=== PATIENT | female | born 1950 | race Caucasian/White ===

== ENCOUNTER 2020-08-24 15:56 | Emergency (ER) | payer MEDICARE, SELFPAY ==
--- NOTE | ~2020-08-24 | XR_ITS ---
EXAMINATION: XR ribs LT 2V w CXR 2V EXAM DATE: 08/24/2020 16:36 INDICATION: Initial encounter following injury, with pain of the left ribs. TECHNIQUE: Frontal projection of the upper left ribs, frontal projection of the lower left ribs, obli que projection of the left ribs, frontal and lateral chest x-ray(s) for interpretation. There is no prior study for comparison. FINDINGS: Contour distortion to the left 8th rib, could be age-indeterminate fracture. No definite co rtical discontinuity identified. There is no soft tissue abnormality seen. Moderate chronic hyperinfl ation. Left midlung zone granuloma. Patient may have left atrial enlargement, but overall cardiac siz e within normal limits. There is severe lumbar dextroscoliosis. Lumbar fusion at L4-5. IMPRESSION: 1. Left 8th rib contour bump, possible age-indeterminate fracture. 2. Chronic hyperinflation. 3. Possible left atrial enlargement. Reviewed, dictated and finalized at location A.
[2020-08-24 16:14] VITALS: BP 148/75; PULSE 74; RESP 20; TEMP 36.4; O2SAT 100
--- NOTE | 2020-08-24 16:27 | ED.GENADULT ---
HPI - General Adult General Chief complaint: Fall Stated complaint: left side rib injury Time Seen by Provider: 08/24/20 16:27 Source: patient and RN notes reviewed Mode of arrival: ambulatory Limitations: no limitations History of Present Illness HPI narrative: 69-year-old female presents with complaints of left rib cage pain status post fall 1 day ago. Chasidy reports falling off toilet, pain increase with deep breathing. No treatment. Denies difficulty breathing or cough. Denies hitting head, syncopal, seizure activities, or loss consciousness. No bruising. No deformity. Exacerbating factors consist of taking a deep breath. No relieving factors. Denies fever or chills. No cardiac chest pain, wheezing, or shortness of breath. Denies nausea or vomiting. Tolerating intake well. Remains active. The patient reports she have not been diagnosed with COVID-19. The patient reports she is not waiting for the results of a COVID-19 lab test. The patient reports she do not have chills, weakness, or fatigue. The patient reports she do not have a new or worsening cough or shortness of breath. The patient reports she do not have any rhinorrhea, congestion, sore throat, loss of taste or smell, abdominal pain, and diarrhea. Denies recent traveling. Denies concerns for COVID-19 or exposures been home with limited outdoor exposure except for essential household needs, work, and return home. At this time, patient is not suspected of having COVID-19. Some parts of this dictation were generated by voice recognition software and may contain typographical and/or grammatical inaccuracies. Related Data Home Medications Medication Instructions Recorded Confirmed bupropion HCl 150 mg PO DAILY 08/24/20 08/24/20 bupropion HCl 300 mg PO DAILY 08/24/20 08/24/20 duloxetine 30 mg PO DAILY 08/24/20 08/24/20 estradiol 0.5 mg PO DAILY 08/24/20 08/24/20 hydrocodone-acetaminophen 5 - 325 tablet PO DAILY 08/24/20 08/24/20 ropinirole 1 mg PO DAILY 08/24/20 08/24/20 Allergies Allergy/AdvReac Type Severity Reaction Status Date / Time latex Allergy Unknown Other Verified 08/24/20 16:24 Sulfa (Sulfonamide Allergy Unknown Swelling Verified 08/24/20 16:24 Antibiotics) TELFA BANDAIDS AdvReac Redness of Uncoded 08/24/20 16:50 Skin Review of Systems Review of Systems: Narrative: CONSTITUTIONAL: Denies fever, chills, sweats. EYES: Denies visual changes, redness, discharge. ENT: Denies rhinorrhea, congestion, sore throat, otalgia. CARDIOVASCULAR: Denies chest pain, palpitations, edema. RESPIRATORY: Denies dyspnea, wheezing, cough. GASTROINTESTINAL: Denies abdominal pain, nausea, vomiting, diarrhea. GENITOURINARY: Denies dysuria, hematuria, abnormal discharge. SKIN: Denies rash or itching. MUSCULOSKELETAL: Denies acute back pain, joint pain, myalgia. Complains of acute left rib cage tenderness. NEUROLOGIC: Denies numbness or focal weakness. PSYCHIATRIC: Denies anxiety or depression. All systems reviewed & are unremarkable except as noted in HPI and below. [facility] Past Medical History Medical History (Updated 08/25/20 @ 00:00 by Yony Gonzales) Back pain with history of spinal surgery Hypertension Surgical History Surgical History (Updated 08/25/20 @ 15:01 by VALERIA Young) History of ear surgery Left History of elbow surgery excision of mass 08/25/2009 History of knee surgery Bilateral History of spinal surgery Family History Family History (Updated 08/24/20 @ 17:07 by VALERIA Young) Father , Related to pneumonia emphysema Smoker in home Mother Cerebrovascular accident Social History Social History (Updated 08/24/20 @ 17:08 by VALERIA Young) Smoking status: Never smoker Tobacco type: cigarettes Second hand tobacco smoke exposure: No Alcohol intake: current Substance use: never Living arrangements: alone Occupation/Education: occupation Gender i
== END 2020-08-24 17:24 | disposition home or self-care (01) ==
PROVIDERS: Emergency Provider Nurse Practitioner Family; PCP Internal Medicine
DX: S20.212A Contusion of left front wall of thorax, initial encounter (principal); W18.11XA Fall from or off toilet without subsequent striking against object, initial encounter; I10 Essential (primary) hypertension
CPT/HCPCS: 71046; 71100; 99213; G0463

== ENCOUNTER 2022-04-12 12:19 | Emergency (ER) | payer MEDICARE, SELFPAY ==
--- NOTE | ~2022-04-12 | XR_ITS ---
XR knee LT min 4V DATE: 04/12/2022 13:21 INDICATION: Fall on left knee. Lateral pain. TECHNIQUE: 4 views COMPARISON: None FINDINGS: Status post left total knee arthroplasty with patellar resurfacing. No fracture or dislocation, periosteal reaction or bone destruction. IMPRESSION: Status post left total knee arthroplasty No fracture or dislocation Reviewed, dictated and finalized at location A.
[2022-04-12 12:34] VITALS: BP 139/73; PULSE 77; RESP 16; TEMP 36.9; O2SAT 98
--- NOTE | 2022-04-12 12:35 | ED.LOWEXIN ---
HPI - Extremity Injury (Lower) General Chief Complaint: Extremity Injury, Lower Stated Complaint: knee and face injury Time Seen by Provider: 04/12/22 13:07 Source: patient and RN notes reviewed Mode of arrival: ambulatory Limitations: no limitations History of Present Illness HPI Narrative: 71-year-old female presents to the [facility] with complaints of left knee pain and bruising to the left side of her face that occurred 3 days ago while camping. Patient states that she missed a step and fell landing on her left side. Patient denies any loss of consciousness. Denies headache. Denies eye pain. Is concerned because she has had a knee replacement and wants to make sure the replacement is fine. Discussed with patient signs and symptoms of a concussion and treatment to follow up with primary care provider and/or ER if she has further concerns for the facial trauma which she states she does not and does not need to go the ER at this time. Onset (ago): day(s) (3) Related Data Home Medications Medication Instructions Recorded Confirmed bupropion HCl 300 mg 24 hr tablet, 300 mg PO DAILY 08/24/20 04/12/22 extended release estradiol 0.5 mg tablet 1 mg PO DAILY 08/24/20 04/12/22 hydrocodone 5 mg-acetaminophen 325 5 - 325 tablet PO BID-TID 08/24/20 04/12/22 mg tablet ropinirole 1 mg tablet 1 mg PO DAILY 08/24/20 04/12/22 gabapentin 300 mg tablet 300 mg PO TID 04/12/22 04/12/22 Allergies Allergy/AdvReac Type Severity Reaction Status Date / Time latex Allergy Unknown Other Verified 04/12/22 12:38 Sulfa (Sulfonamide Allergy Unknown Swelling Verified 04/12/22 12:38 Antibiotics) TELFA BANDAIDS AdvReac Redness of Uncoded 04/12/22 12:38 Skin Review of Systems Review of Systems: All systems reviewed & are unremarkable except as noted in HPI and below Constitutional: Constitutional: Reports no additional constitutional complaints, Denies chills and Denies fever(s) Eyes: Eyes: Reports no additional eye complaints ENT: Reports system reviewed and no additional complaints, except as documented Cardiovascular: Cardiovascular: Reports no additional cardiovascular complaints Respiratory: Respiratory: Reports no additional respiratory complaints Gastrointestinal: Gastrointestinal: Reports no additional gastrointestinal complaints Musculoskeletal: Musculoskeletal: Reports as per HPI, Reports arthralgias and Reports joint swelling Integumentary/Breasts: Skin/Breast: Reports as per HPI Neurologic: Reports system reviewed and no additional complaints, except as documented Psychiatric: Psychiatric: Reports no additional psychiatric complaints Allergic/Immunologic: Allergic/Immunologic: Reports no additional allergic/immunologic complaints [facility] Past Medical History Medical History Back pain with history of spinal surgery Hypertension Surgical History Surgical History History of ear surgery Left History of elbow surgery excision of mass 08/25/2009 History of knee surgery Bilateral History of spinal surgery Family History Family History Father , Related to pneumonia emphysema Smoker in home Mother Cerebrovascular accident Social History Social History Smoking status: Never smoker Tobacco type: cigarettes Second hand tobacco smoke exposure: No Alcohol intake: current Substance use: never Gender identity (if verbalized by the patient): Female Comments At the time of my signature, I reviewed and agree with the nursing past medical, surgical, social, and family history. There is no relevant family history pertinent to the patient complaint. Exam Const: General: healthy appearing, no acute distress, alert and well nourished Nutritional Appearance: wel
== END 2022-04-12 13:46 | disposition home or self-care (01) ==
PROVIDERS: Emergency Provider Nurse Practitioner; PCP Internal Medicine
DX: S80.02XA Contusion of left knee, initial encounter (principal); W19.XXXA Unspecified fall, initial encounter; I10 Essential (primary) hypertension
CPT/HCPCS: 73564; 99213; G0463

== ENCOUNTER 2023-04-14 11:27 | Emergency (ER) | payer MEDICARE, SELFPAY ==
--- NOTE | ~2023-04-14 | XR_ITS ---
Right Shoulder Technique: AP and scapular Y views were obtained. Clinical History: Pain Findings: No fracture or dislocation is seen. Right shoulder arthroplasty in place. No hardware compl ication seen. Soft tissues are unremarkable. Impression: No acute abnormality. Right shoulder arthroplasty. Reviewed, dictated and finalized at location . [employer] Impression: No acute abnormality. Right shoulder arthroplasty.
[2023-04-14 11:38] VITALS: BP 156/81; PULSE 89; RESP 20; TEMP 37.3; O2SAT 97
[2023-04-14 11:44] VITALS: BP 156/81; PULSE 89; RESP 20; TEMP 37.3; O2SAT 97
--- NOTE | 2023-04-14 12:53 | ED.UPPEXIN ---
HPI - Extremity Injury (Upper) General Chief Complaint: Extremity Injury, Upper Stated Complaint: injuries from fall Source: patient Mode of arrival: ambulatory Limitations: no limitations History of Present Illness HPI narrative: 72 y/o female presented for c/o right shoulder pain after fall at home 2 days ago. states when getting up in the night she tripped and fell landing the right shoulder on the coffee table and then twisted striking the left side of her face on her table again. Denies Loss of consciousness. Reports pain to the right shoulder worse with movement of the arm, reports limited ROM to the shoulder due to pain. Denies headache, vision changes, dizziness, nausea, vomiting. denies numbness, tingling, weakness or radiating pain of the upper extremity. she took hydrocodone for pain today, as prescribed for back pain. Related Data Home Medications Medication Instructions Recorded Confirmed bupropion HCl 300 mg 24 hr tablet, 300 mg PO DAILY 08/24/20 04/14/23 extended release hydrocodone 5 mg-acetaminophen 325 5 - 325 tablet PO BID-TID 08/24/20 04/14/23 mg tablet ropinirole 1 mg tablet 1 mg PO DAILY 08/24/20 04/14/23 Allergies Allergy/AdvReac Type Severity Reaction Status Date / Time latex Allergy Unknown Other Verified 04/14/23 11:42 Sulfa (Sulfonamide Allergy Unknown Swelling Verified 04/14/23 11:42 Antibiotics) TELFA BANDAIDS AdvReac Redness of Uncoded 04/14/23 11:42 Skin Review of Systems Review of Systems: CONSTITUTIONAL: Denies body aches, fever, chills EYES: Reports bruising; Denies visual changes ENT: Denies rhinorrhea, epistaxis CARDIOVASCULAR: Denies chest pain, palpitations, or edema. RESPIRATORY: Denies cough or dyspnea. GASTROINTESTINAL: Denies abdominal pain, nausea, vomiting, or diarrhea. SKIN: Denies rash, itching, or wounds. MUSCULOSKELETAL: reports right shoulder pain Denies back pain, or myalgia. NEUROLOGIC: Denies headache, numbness, tingling, or weakness. All systems reviewed & are unremarkable except as noted in HPI and below PMFSH Past Medical History Medical History Back pain with history of spinal surgery Hypertension Surgical History Surgical History History of ear surgery Left History of elbow surgery excision of mass 08/25/2009 History of knee surgery Bilateral History of spinal surgery Family History Family History Father , Related to pneumonia emphysema Smoker in home Mother Cerebrovascular accident Social History Social History Smoking status: Never smoker Tobacco type: cigarettes Second hand tobacco smoke exposure: No Alcohol intake: current Substance use: never Living arrangements: alone Occupation/Education: occupation Gender identity (if verbalized by the patient): Female Comments At time of signature, I have reviewed and agree with nursing past medical, surgical, social and family history unless otherwise noted. Please see nursing chart for further information. There is no relevant family history pertinent to the presenting complaint Exam Narrative: GENERAL: Well-appearing, well-nourished, and in no acute distress. HEAD: Left periorbital ecchymosis, mild tenderness over eyebrow; left mid mandible with mild bruising and tenderness EYES: PERRLA, EOMI. conjunctivae clear, minimal swelling to right periorbital area; no subconjunctival hemorrhage NECK: Supple. no VPT, full ROM. CHEST: Speaks in full sentences. No respiratory distress. HEART: Regular rate and rhythm. Normal and equal peripheral pulses. EXTREMITIES: RUE has normal strength and sensation, limited range of motion at shoulder; endorses pain with movement. Posterior shoulder tenderness with palpation. able to tole
== END 2023-04-14 13:10 | disposition home or self-care (01) ==
PROVIDERS: Emergency Provider Nurse Practitioner Family; PCP Internal Medicine
DX: M25.512 Pain in left shoulder (principal); S05.12XA Contusion of eyeball and orbital tissues, left eye, initial encounter; W01.0XXA Fall on same level from slipping, tripping and stumbling without subsequent striking against object, initial encounter; I10 Essential (primary) hypertension
CPT/HCPCS: 73030; 99213; G0463

== ENCOUNTER 2023-06-09 15:44 | Emergency (ER) | payer MEDICARE, SELFPAY ==
[2023-06-09 15:58] VITALS: BP 124/68; PULSE 95; RESP 20; TEMP 37.4; O2SAT 96
--- NOTE | 2023-06-09 17:01 | ED.GENADULT ---
HPI - General Adult General Chief complaint: Nausea/Vomiting/Diarrhea Stated complaint: diarrhea x 4 days Time Seen by Provider: 06/09/23 17:01 Source: patient, RN notes reviewed and old records reviewed Mode of arrival: ambulatory Limitations: no limitations History of Present Illness HPI narrative: 72 year old female presents to [facility] with complaints of 2 week duration of diarrhea off and on with the past 4 days increase in diarrhea with 10 times today of loose stools with stomach cramps.Patient reports that she called her PCP on and was told to go to urgent care that no appointment available that day or next. Patient reports no recent antibiotic use, no fevers or any noted blood in stools. Patient denies any lower abdominal pain or any associated back pain. Patient reports that she had colonoscopy 3 months ago and everything was fine with test. Patient states that she has taken Pepto Bismol and also Immodium for the diarrhea. MD complaint: diarrhea Onset (ago): week(s) (2 weeks intermittently with increased symptoms past 4 days) Quality: other (cramping) Treatments prior to arrival: other (immodium and Pepto Bismol) Related Data Home Medications Medication Instructions Recorded Confirmed hydrocodone 5 mg-acetaminophen 325 5 - 325 tablet PO BID-TID 08/24/20 06/09/23 mg tablet ropinirole 1 mg tablet 1 mg PO DAILY 08/24/20 06/09/23 atorvastatin 20 mg tablet 20 mg PO DAILY 06/09/23 06/09/23 losartan 25 mg tablet 25 mg PO DAILY 06/09/23 06/09/23 Allergies Allergy/AdvReac Type Severity Reaction Status Date / Time latex Allergy Unknown Other Verified 06/09/23 16:44 Sulfa (Sulfonamide Allergy Unknown Swelling Verified 06/09/23 16:44 Antibiotics) TELFA BANDAIDS AdvReac Redness of Uncoded 04/14/23 11:42 Skin Review of Systems Review of Systems: CONSTITUTIONAL: Denies fever, chills, or sweats. ENT: Denies rhinorrhea, congestion, sore throat, or otalgia. CARDIOVASCULAR: Denies chest pain, palpitations, or edema. RESPIRATORY: Denies cough or dyspnea. GASTROINTESTINAL: Reports abdominal cramping, positive for nausea,no vomiting, positive for diarrhea. GENITOURINARY: Denies dysuria or hematuria. SKIN: Denies rash or itching. MUSCULOSKELETAL: Chronic back pain, joint pain, or myalgia. NEUROLOGIC: Denies headache, numbness, or weakness. All systems reviewed & are unremarkable except as noted in HPI and below PMFSH Past Medical History Medical History (Updated 06/11/23 @ 17:05 by Sarahy Corona NP) Back pain with history of spinal surgery Hyperlipidemia Hypertension Restless leg syndrome Surgical History Surgical History H/O bilateral oophorectomy History of ear surgery Left History of elbow surgery excision of mass 08/25/2009 History of knee surgery Bilateral History of right shoulder replacement History of spinal surgery Family History Family History Father , Related to pneumonia emphysema Smoker in home Mother Cerebrovascular accident Social History Social History Smoking status: Never smoker Tobacco type: cigarettes Second hand tobacco smoke exposure: No Alcohol intake: current Substance use: never Living arrangements: alone Occupation/Education: occupation Gender identity (if verbalized by the patient): Female Comments At time of signature, agree with nursing past medical, surgical, social and family history. There is no relevant family history pertinent to the presenting complaint Exam Narrative: GENERAL: Well-appearing, well-nourished, and in no acute distress. HEAD: Normocephalic, atraumatic. EYES: PERRLA, conjunctivae clear, and EOMI. ENT: Nares clear. Mucous membranes moist. Oropharynx without edema, erythema, or lesions. Tonsils not enlarged and without
== END 2023-06-09 17:30 | disposition home or self-care (01) ==
PROVIDERS: Emergency Provider Registered Nurse; PCP Internal Medicine
DX: K52.9 Noninfective gastroenteritis and colitis, unspecified (principal); E78.5 Hyperlipidemia, unspecified; I10 Essential (primary) hypertension; G25.81 Restless legs syndrome; Z96.612 Presence of left artificial shoulder joint; Z96.611 Presence of right artificial shoulder joint
CPT/HCPCS: 99213; G0463

== ENCOUNTER 2024-01-02 15:28 | Emergency (ER) | payer MEDICARE, SELFPAY ==
[2024-01-02 15:32] VITALS: BP 141/76; PULSE 96; RESP 18; TEMP 36.6; O2SAT 97
--- NOTE | 2024-01-02 15:43 | ED.WOUNDLAC ---
HPI - Wound/Laceration General Chief Complaint: Wound/Laceration Stated Complaint: left hand lac / needs tetnus Time Seen by Provider: 01/02/24 15:44 Source: patient, RN notes reviewed and old records reviewed Mode of arrival: ambulatory Limitations: no limitations History of Present Illness HPI narrative: 73-year-old female presents to the [facility] with a 1.5 cm laceration to the palmar aspect left hand just below 2nd finger. Also requesting a tetanus shot unknown last Tdap. Bleeding is controlled. States that she caught it on a piece of glass this morning Related Data Home Medications Medication Instructions Recorded Confirmed hydrocodone 5 mg-acetaminophen 325 5 - 325 tablet PO BID-TID 08/24/20 06/09/23 mg tablet ropinirole 1 mg tablet 1 mg PO DAILY 08/24/20 06/09/23 atorvastatin 20 mg tablet 20 mg PO DAILY 06/09/23 06/09/23 losartan 25 mg tablet 25 mg PO DAILY 06/09/23 06/09/23 albuterol sulfate 90 mcg/actuation inhalation 01/02/24 aerosol inhaler baclofen 10 mg tablet mg 01/02/24 bupropion HCl 150 mg 24 hr tablet, mg PO 01/02/24 extended release Allergies Allergy/AdvReac Type Severity Reaction Status Date / Time latex Allergy Unknown Other Verified 06/09/23 16:44 Sulfa (Sulfonamide Allergy Unknown Swelling Verified 06/09/23 16:44 Antibiotics) TELFA BANDAIDS AdvReac Redness of Uncoded 04/14/23 11:42 Skin Review of Systems Review of Systems: All systems reviewed & are unremarkable except as noted in HPI and below Constitutional: Constitutional: Reports no additional constitutional complaints Eyes: Eyes: Reports no additional eye complaints ENT: Reports system reviewed and no additional complaints, except as documented Cardiovascular: Cardiovascular: Reports no additional cardiovascular complaints, Denies chest pain and Denies dyspnea Respiratory: Respiratory: Reports no additional respiratory complaints, Denies chest congestion, Denies cough and Denies dyspnea Gastrointestinal: Gastrointestinal: Reports no additional gastrointestinal complaints, Denies abdominal pain, Denies nausea and Denies vomiting Musculoskeletal: Musculoskeletal: Reports no additional musculoskeletal complaints Integumentary/Breasts: Skin/Breast: Reports as per HPI and Reports wounds Neurologic: Reports system reviewed and no additional complaints, except as documented Psychiatric: Psychiatric: Reports no additional psychiatric complaints Allergic/Immunologic: Allergic/Immunologic: Reports no additional allergic/immunologic complaints PMFSH Past Medical History Medical History Back pain with history of spinal surgery Hyperlipidemia Hypertension Restless leg syndrome Surgical History Surgical History H/O bilateral oophorectomy History of ear surgery Left History of elbow surgery excision of mass 08/25/2009 History of knee surgery Bilateral History of right shoulder replacement History of spinal surgery Family History Family History Father , Related to pneumonia emphysema Smoker in home Mother Cerebrovascular accident Social History Social History Smoking status: Never smoker Tobacco type: cigarettes Second hand tobacco smoke exposure: No Alcohol intake: current Substance use: never Living arrangements: alone Occupation/Education: occupation Gender identity (if verbalized by the patient): Female Comments At the time of my signature, I reviewed and agree with the nursing past medical, surgical, social, and family history. There is no relevant family history pertinent to the patient complaint. Exam Const: General: cooperative, healthy appearing, comfortable, no acute distress, well developed, alert and well nourished Nutritional A
[2024-01-02] MEDS: TETANUS,DIPHTHERIA,AC PERTUSSIS ADULT (0.5 ML) BOOSTRIX IM (16:23)
== END 2024-01-02 16:32 | disposition home or self-care (01) ==
PROVIDERS: Emergency Provider Nurse Practitioner; PCP Internal Medicine
DX: S61.412A Laceration without foreign body of left hand, initial encounter (principal); W25.XXXA Contact with sharp glass, initial encounter; Z23 Encounter for immunization; E78.5 Hyperlipidemia, unspecified; I10 Essential (primary) hypertension; G25.81 Restless legs syndrome; Z96.611 Presence of right artificial shoulder joint; Z90.722 Acquired absence of ovaries, bilateral
CPT/HCPCS: 12001; 90471; 90715; 99212; G0463

== ENCOUNTER 2024-10-18 19:02 | Emergency (ER) | payer MEDICARE, SELFPAY ==
--- OUTSIDE RECORDS SUMMARY | 2024-10-18 19:05 | XMS_ITS | CONTINUITY OF CARE DOCUMENT ---
Author Name opal joseph Address Unknown Organization [facility] Office Address [address] [place] [address] Phone [phone] Care Team Providers Care Local Tanker Truck Driver Name Role Phone Davion DARLING, Dhiraj Unavailable [phone] FLORENCIO DARLING, PILLO Unavailable [phone] FLORENCIO DARLING, PILLO Unavailable [phone] PROBLEMS Condition Status Date Provider Notes Cardiovascular screening active Sheron lee INSURANCE PROVIDERS Payer name Policy type / Coverage type [place] red libertarian ID [employer] MEDICARE ADVANTAGE ST 0 003 (HMO POS) Medicare [id number] TREATMENT PLAN Date Name CT, Coronary Calcium Score
--- OUTSIDE RECORDS SUMMARY | 2024-10-18 19:05 | XMS_ITS | Encounter Summary ---
Author Organization [facility] Address [address] [place] [address] Phone Care Team Providers Care Pre Billing Clinician Name Role Phone Radha Peck PT Unavailable Unavailable Ashley Glasgow PTA Unavailable Unavailable Rogerio Ash MD Primary Care Provider + Dominic Booker DPM Unavailable [phone] Delfina Monroy Unavailable [phone] Nicole Muñiz DPM Unavailable [phone] Encounter Details Date Type Department Care Team (Late st Contact Info) Description 05/16/2021 Telephone [facility] Surgery [address] [facility] [address] [place] [address] Kayla Trimble Social History Tobacco Use Types Packs/Day Years Used Date Smoking Tobacco: Never Smokeless Tobacco: Never Alcohol Use Standard Drinks/Week Comments Yes 0 (1 standard drink = 0.6 oz pur e alcohol) rare AUDIT-C Answer Date Recorded Q1: How often do you have a drink containing alc ohol? 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 Gender Identity Female 11/20/2021 7:13 AM CDT Sexual Orientation Straight 11/11/2018 2: 28 AM CDT documented as of this encounter Plan of Treatment Not on file documented as of this encounter Visit Diagnoses Not on filedocumented in this encounter Care Teams Pre Billing Clinician Relationship Specialty Start Date End Date Rogerio Ash MD [address] [place] [address] PCP - General 03/28/18 Radha Peck, PT Physical Therapist Physical Therapy 01/23/18 Ashley Glasgow [employer] Moving Picture Producer Physical Therapy 01/26/18 Dominic Booker, TITA [address] [place] [address] Consulting Physician Orthopedic Surgery 03/31/20 Delfina Monroy PA [address] [place] [id number] Physician County Agricultural Agent Orthopedic Surgery 11/09/21 Nicole Muñiz DPM [address] [place] [id number] Consulting Physician Foot and Ankle Surg 03/25/22 documented as of this encounter
--- OUTSIDE RECORDS SUMMARY | 2024-10-18 19:05 | XMS_ITS | Clinical Summary ---
Author Organization [facility] Address [address] [place] [address] Care Team Providers Care Gutter Hanger Name Role Phone CiscoRadha PT Unavailable Unavailable Ashley Glasgow PTA Unavailable Unavailable Rogerio Ash MD Primary Care Provider + Dominic Booker DPM Unavailable [phone] Delfina Monroy Unavailable [phone] Nicole Muñiz DPM Unavailable [phone] Allergies Active Allergy Reactions Criticality Noted Date Comments Latex Rash High Meperidine Rash Medium Sulfa (Sulfonamide Antibiotics) Nausea & Vomiting,Nausea only,Anaphylaxis High Reaction: Nausea, Vomiting. Diarrhea, Blist, Medications buPROPion XL (WELLBUTRIN XL) 300 mg 24 hr tablet Take 1 tablet (300 mg total) by mouth every morning Takes 450mg per day 0 Active rOPINIRole (REQUIP) 1 mg tablet Take 1 tablet (1 mg total) by mouth 3 (three) times a day Active estradioL (ESTRACE) 1 mg tablet Take 1 tablet (1 mg total) by mouth daily 2 Active baclofen (LIORESAL) 10 mg tablet Take 1 tablet (10 mg total) by mouth nightly at bedtime. 2 Active HYDROcodone-rayray taminophen (NORCO) 5-325 mg per tabletIndicatio ns:Pain Take 1-2 tablets by mouth every 4 (four) hours as needed for pain Take 1-2 tablets every 4-6 hours as needed for pain 20 tablet 3 Active ALPRAZolam (XANAX) 0.5 mg tablet Take 1 tablet (0.5 mg total) by mouth daily 3 Active albuterol HFA (PROVENTIL HFA,VENTOLIN HFA,PROAIR HFA) 90 mcg/actuation inhaler 3 Active fluticasone propionate (FLONASE) 50 mcg/actuation nasal spray Administer 1 spray into each nostril daily Active loratadine 10 mg capsule Take by mouth Activ e losartan (COZAAR) 50 mg tablet 4 Active atorvastatin (LIPITOR) 40 mg tablet 4 Active clobetasoL (TEMOVATE) 0.05 % external solution 4 Active ketoconazole (NIZORAL) 2 % shampoo 4 Active triamterene-hyd roCHLOROthiazid e 37.5-25 mg per capsule 4 Active ferrous fumarate 325 mg (106 mg iron) tablet Take 1 tablet (325 mg total) by mouth daily with breakfast Active magnesium oxide (MAG-OX) 400 mg (241.3 mg elemental magnesium) tabletIndicatio ns:hypomagnesem ia Take 1 tablet (400 mg total) by mouth daily Active zinc gluconate 50 mg tablet Take 1 tablet (50 mg total) by mouth daily Active cholecalciferol (VITAMIN D-3) 2000 unit tablet Active Active Problems Problem Noted Date Diagnosed Date Snoring 09/09/2024 Infectious gastroenteritis and colitis 4 Acquired hammer toe of right foot 06/03/2023 Hammer toe of left foot 06/03/2023 Primary osteoarthritis of fi rst carpometacarpal joint of left hand 10/31/2022 De Quervain's tenosynovitis 10/31/2022 Lipoma of right shoulder 03/20/2022 Overview (03/20/2022): Added automatically from request for surgery [id number] 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 Overview (03/20/2022): Added automatically from request for surgery [id number] Rotator cuff arthropathy, right 10/18/2021 Overview (10/18/2021): Added automatically from request for surgery [id number] Biceps tendonitis, right 10/18/2021 Overview (10/18/2021): Added automatically from request for surgery [id number] COVID-19 02/22/2021 Iron deficiency anemia 07/21/2020 Overview (07/21/2020): Added automatically from request for surgery [id number] Absolute anemia 03/28/2020 Overview (03/28/2020): Added automatically from request for surgery [id number] Nontoxic single thyroid nodule 06/15/2019 Assessment & Plan (06/15/2019 10:44 AM SKEIN DYER): Fine needle aspiration to right Thyroid Lobe nodule 2 cm - call with results Zpak Good hydration Monitor blood pressure Cough 06/15/2019 Assessment & Plan (06/15/2019 10:45 AM SKEIN DYER): Zpak, call if no improvement Headache 05/17/2019 Dizzy 05/17/2019 Fever 05/17/2019 Hearing loss 03/22/2019 Assessment & Plan (03/22/2019 2:34 PM CDT): Continue hearing aids, ear drum was intact today Spinal stenosis of lumbar region 01/09/2016 Overview (09/11/2016): Lumbar stenosis Assessment & Plan (03/10/2017 11:54 AM CDT): Reviewed core strengthening. Reviewed ROM exercises. Continue gabapentin and hydrocodone as needed. Assessment & Plan (11/19/2016 7:51 AM CDT): Continue gabapentin and hydrocodone as needed. Reviewed core strengthening. Reviewed ROM exercises. Neurogenic claudication due to lumbar spinal madonna nosis 01/09/2016 Overview (09/12/2016): Neurogenic claudication Assessment & Plan (03/10/2017 11:38 AM CDT): Reviewed core strengthening. Reviewed ROM exercises. Continue gabapentin and hydrocodone as needed. Acquired scoliosis 12/22/2015 Overview (09/12/2016): Acquired scoliosis Obesity with body mass index 30 or greater 11/14 Fecal incontinence 04/11/2014 Assessment & Plan (12/22/2023 4:38 PM CDT): Chronic issue. Mainly seeping of mucus and the liquid stool. Discussed with patient to start anal sphincter strengthening exercises. Start fiber supplements daily. Schedule colonoscopy with no sedation to properly examined the rectal in the anal sphincter areas. Follow up after Migraine 12/21/2013 Overview (09/12/2016): MIGRNE UNSP WO NTRC MGRN Atopic rhinitis 10/23/2013 Overview (09/11/2016): ALLERGIC RHINITIS NOS Assessment & Plan (03/22/2019 2:35 PM CDT): Flonase 2 sprays into each nostril while looking down over the sink, do not sniff in or blow nose after use daily Zyrtec (Cetirizine) 10 mg daily Hypertension 10/23/2013 Overview (09/12/2016): HYPERTENSION NOS Assessment & Plan (03/10/2017 11:37 AM CDT): Hypertension is controlled. Continue current regimen. Removed low sodium diet. Assessment & Plan (11/19/2016 7:50 AM CDT): Hypertension is controlled. Continue current regimen. Removed low sodium diet. Asthma 10/23/2013 Overview (09/12/2016): ASTHMA NOS Assessment & Plan (11/19/2016 12:49 PM CDT): Continue bronchodilators. Start Advair. Hyperlipidemia 10/23/2013 Overview (09/13/2016): HYPERLIPIDEMIA NEC/NOS Assessment & Plan (03/10/2017 11:38 AM CDT): Reviewed proper diet. Continue statin therapy. Assessment & Plan (11/19/2016 7:51 AM CDT): Reviewed diet and exercise goals. Sciatica 03/23/2004 Spinal stenosis in cervical region 03/23/2004 Encounters Date Type Department Care Team Description 09/07/2024 10:00 AM CDT - 09/07/2024 11:59 PM CDT Hospital Encounter [facility] [address] [place] [id number] Snoring Discharge Disposition: Discharge to home or self care from Last 3 Months Immunizations Immunization Administration Dates Next Due Influenza, Quadrivalent, Spl it, Preservative Free, Intramuscular 04/27/2015 Influenza, Split 04/22/2011 Influenza, Trivalent, High D ose, Split, Preservative Free, Intramuscular 03/10/2017,03/04/2016 Influenza, Trivalent, Split, Preservative Free, Intradermal 03/14/2014 Pneumococcal Conjugate PCV 13 03/04/2016 Tdap 03/28/2018 Surgical History Surgery Date Site/Laterality Comments TOTAL ABDOMINAL HYSTERECTOMY W/ BILATERAL SALPINGOOPHORECTOMY Hysterectomy, total abdominal, BSO BACK SURGERY Back surgery rods in baclk in the lower lumbar region CHOLECYSTECTOMY Cholecystectomy KNEE ARTHROPLASTY Bilateral Knee replacement TOE SURGERY 04/15/2018 Left Greater toe hammertoe repair, Right Fifth toe scraped bone and stitches EAR SURGERY 06/09/2008 - 06/08/2009 Left Fat patch done to cover hole in left ear drum. Didn't take. JOINT REPLACEMENT bilat TKA SPINE SURGERY L5-L6 COLONOSCOPY 10 years ago CORRECTION HAMMER TOE 03/09/2020 - 04/08/2020 Left CORRECTION HAMMER TOE 03/06/2022 Left SHOULDER SURGERY Right total shoulder surgery Medical History Medical History Date Comments Hx Other Medical RLS Hx Other Medical adjustment diso rder Hx Other Medical perforated L TM Hx Other Medical hiatal hernia Hyperlipidemia Hypertension Asthma Claustrophobia Neuropathy GERD (gastroesophageal reflux disease) Chronic diarrhea Anxiety Shortness of breath after having covid Depression Family History Medical History Relation Name Comments Diabetes type II Other 4 Diabetes me llitus type 2; Hypertension Other 5 Hypertension; Lymphoma Other 6 Lymphoma; Heart disease Other 7 Family history of heart problems; Arthritis Other 8 Family history of arthritis; Diabetes Other 9 Family history of Diabetes mellitus; Relation Name Status Comments Other 1 Alive Other 2 Alive Other 3 Alive Other 4 Other 5 Other 6 Other 7 Other 8 Other 9 Social History Tobacco Use Types Packs/Day Years Used Date Smoking Tobacco: Never Passive Smoke Exposure: Never Smokeless Tobacco: Never Tobacco Cessation:Counseling Given: Not Answered Alcohol Use Standard Drinks/Week Comments Yes 0 (1 standard drink = 0.6 oz pur e alcohol) rare AUDIT-C Answer Date Recorded Q1: How often do you have a drink containing alcohol? Never 12/31/2023 Q2: How many drinks containi ng alcohol do you have on a typical day when you are drinking? Patient does not drink Q3: How often do you have si x or more drinks on one occasion? Never 12/31/2023 PHQ-2 Answer Date Recorded PHQ-2 Total Score (If total score is 3 or more points, staff should administer the PHQ-9) 0 11/08/2021 Personal Safety Answer Date Recorded Have you ever been in or are you currently in a harmful physical or emotional relationship or is someone making you feel afraid or unsafe? Denies 01/01/2024 Comments No Sex and Gender Information Value Date Recorded Sex Assigned at Not on file Legal Sex Female 8:19 AM SKEIN DYER Gender Identity Female 11/20/2021 7:13 AM CDT Sexual Orientation Straight 11/11/2018 2: 28 AM CDT Obstetrics History Para Term AB IAB SAB Ectopic Multiple Livin g Live Births 2 2 2 Date Outcome GA Total Labor Labor/2nd/3rd Weight Sex Type Anes PTL Ema A1 A5 Name Clin Term Term Last Filed Vital Signs Vital Sign Reading Time Taken Comments Blood Pressure 152/80 01/01/2024 8:35 AM CDT Pulse 68 01/01/2024 8:35 AM CDT Temperature 36.6 C (97.8 F) 01/01/2024 8:35 AM CDT Respiratory Rate 16 01/01/2024 8:35 AM CDT Oxygen Saturation 98% 01/01/2024 8:35 AM CDT Inhaled Oxygen Concentration - - Weight 84.8 kg (187 lb) 01/01/2024 7:24 AM CDT Height 165.1 cm (5' 5 ) 01/01/2024 7:24 AM CDT Body Mass Index 31.12 01/01/2024 7:24 AM CDT Plan of Treatment Health Maintenance Due Date Last Done Comments Hepatitis C Screening 1950 Osteoporosis Screening-Bone Density Scan 1950 Hepatitis B Screening 1968 Lung Cancer Screening 2000 Zoster Vaccine (1 of 2) 2000 Well Visit 65+ 09/26/2015 Pneumococcal vaccine 65+ (2 of 2 - PPSV23) 07/16/2018 05/21/2018, 03/04/2016 Depression Screening 10/18/2022 10/18/2021, 03/10/2017, 11/19/2016 Breast Cancer Screening-Mammogram 01/18/2024 01/17/2023, 08/25/2014, 08/24/2014 Fall Risk Assessment 12/31/2024 01/01/2024 Influenza Vaccine (Season Ended) 2025 05/02/2023, 03/28/2023, 04/13/2021, Additional history exists DTaP/Tdap/Td Vaccine (2 - Td or Tdap) 03/28/2028 03/28/2018 Colon Cancer Screening-Colonoscopy 08/24/2030 08/24/2020 Colon Cancer Screening-CT Colonography Discontinued 01/01/2024, 08/24/2020 Colon Cancer Screening-DNA Stool Discontinued 01/01/20, 08/24/2020 Colon Cancer Screening-FIT Discontinued 01/01/2024, Colon Cancer Screening-Sigmoidoscopy Discontinued 01/01/2024, 08/24/2020 Medical Devices Implanted Type Area Baseball Inspector Device Identifier Shelf Expiration Date Model / Serial / Lot Cement Bone Smartset Gentamicin 40 Gm High Viscosity - [id number] Implanted:Qty: 1 on 07/01/2017 at [facility] [employer] 10/06/2018 [id number] / / [id number] Cement Bone Smartset Gentamicin 40 Gm High Viscosity - [id number] Implanted:Qty: 1 on 07/01/2017 at [facility] [employer] 11/06/2018 [id number] / / [id number] Baseplate Tibial Attune 5 Knee Cement Revision Fix Bearing Sterile Knee System - [id number] Implanted:Qty: 1 on 07/01/2017 at [facility] [employer] 11/06/2026 [id number] / / [id number] Stem Femoral Attune L50 Mm Od14 Mm Knee Cemented Revision Sterile - [id number] Implanted:Qty: 1 on 07/01/2017 by Dennis Espino MD at [facility] [employer] 11/06/2026 [id number] / / [id number] Insert Tibial Attune Aox 6 H8 Mm Knee Posterior Stabilize Fix Bearing Sterile - [id number] Implanted:Qty: 1 on 07/01/2017 by Dennis Espino MD at [facility] [employer] 04/08/2022 [id number] / / [id number] Dome Patellar Attune Aox H35 Mm Knee Cemented Medialize Sterile - [id number] Implanted:Qty: 1 on 07/01/2017 by Dennis Espino MD at [facility] [employer] 02/06/2022 [id number] / / [id number] Component Femoral Attune 6 Knee Right Cemented Posterior Stabilize Sterile - [id number] Implanted:Qty: 1 on 07/01/2017 by Dennis Espino MD at [facility] [employer] 03/08/2027 [id number] / / [id number] Inkblazers Tff-2015a Tenfuse 15x2mm Allograft Angle Graft Bone Pip Sterile - Sn/A - [id number] Implanted:Qty: 1 on 03/31/2020 at [facility] Left: Foot [employer] [id number] 06/16/2021 TFF-2015A / N/A / [id number] [employer]ers Tff-2718 Tenfuse 18x2.7mm Allograft Graft Bone Pip Sterile - [id number] Implanted:Qty: 1 on 03/31/2020 at [facility] Left: Foot [employer] 12/14/2021 TFF-21506 / / [id number] Ink[employer]ers Tff-2015a Tenfuse 15x2mm Allograft Angle Graft Bone Pip Sterile - Sna - [id number] Implanted:Qty: 1 on 03/31/2020 at [facility] Left: Nick [employer] C1713 06/16/2021 TFF-2015A / NA / [id number] Exactech Reverse Torque Define Shoulder Kit Screw 320-20-00 - [id number] - [id number] Implanted:Qty: 1 on 11/08/2021 by Dennis Espino MD at [facility] Right: Shoulder [employer] 10/14/2026 320-20-00 / [id number] / N/A [employer]ech 315-08-70kiajon xe Small Reverse Superior Posterior Augment Shoulder Right - [id number] - [id number] Implanted:Qty: 1 on 11/08/2021 by Dennis Espino MD at [facility] Right: Shoulder [employer] 09/04/2031 320-35-08 / [id number] / N/A [employer] 320-31-36 Component 36mm Glenoid Glenosphere Reverse Shoulder - [id number] - [id number] Implanted:Qty: 1 on 11/08/2021 by Dennis Espino MD at [facility] Right: Shoulder [employer] 03/29/2031 320-31-36 / [id number] / N/A [employer]ech Equinoxe 4.5mm 34mm Kit Compression Lock Cap Reverse Shoulder 320-20-34 - [id number] - [id number] Implanted:Qty: 1 on 11/08/2021 by Dennis Espino MD at [facility] Right: Shoulder [employer] 08/28/2026 320-20-34 / [id number] / N/A [employer] Equinoxe 4.5mm 34mm Kit Compression Lock Cap Reverse Shoulder 320-20-34 - [id number] - [id number] Implanted:Qty: 1 on 11/08/2021 by Dennis Espino MD at [facility] Right: Shoulder [employer] 02/05/2026 320-20-34 / [id number] / N/A [employer]ech Equinoxe Reverse Shoulder +0mm Tray Humeral Adapter 320-10-00 - [id number] - [id number] Implanted:Qty: 1 on 11/08/2021 by Dennis Espino MD at [facility] Right: Shoulder [employer] 10/16/2031 320-10-00 / [id number] / N/A [employer]ech 300-30-10 Equinoxe Od10 Mm L70 Mm Preserve Short Stem Humeral Sterile - [id number] - [id number] Implanted:Qty: 1 on 11/08/2021 by Dennis Espino MD at [facility] Right: Shoulder [employer] 10/17/2030 300-30-10 / [id number] / N/A [employer]actech Equinoxe 36mm Shoulder 0mm Offset Liner Humeral Sterile 320-36-00 - [id number] - [id number] Implanted:Qty: 1 on 11/08/2021 by Dennis Espino MD at [facility] Right: Shoulder [employer] 06/25/2026 320-36-00 / [id number] / N/A [employer]ech Equinoxe Lock Reverse Shoulder Glenosphere Screw Bone 320-15-05 - Sn/S - [id number] Implanted:Qty: 1 on 11/08/2021 by Dennis Espino MD at [facility] Right: Shoulder [employer] [id number] 09/17/2026 320-15-05 / N/S / [id number] Exactech Equinoxe Lock Reverse Shoulder Glenosphere Screw Bone 320-15-05 - Sn/A - [id number] Implanted:Qty: 1 on 11/08/2021 by Dennis Espino MD at [facility] [employer] [id number] 09/10/2026 320-15-05 / N/A / [id number] [employer] Dx Swivelock Sl 3.5mm 8.5mm Fork Eyelet [place] Suture Sterile Ar-8978p - [id number] Implanted:Qty: 1 on 11/18/2022 by Dennis Espino MD at [facility] Left: Wrist [employer] 06/08/2027 AR-8978P / / [id number] [employer] Inc Arthrex Dx Fibertak Needle [place] Suture Sterile Latex Free Ar-8990st - [id number] Implanted:Qty: 1 on 11/18/2022 by Dennis Espino MD at [facility] Left: Wrist [employer] 06/08/2027 AR-8990ST / / [id number] Explanted Type Area Baseball Inspector Device Identifier Shelf Expiration Date Model / Serial / Lot Inkblazers Tff-2015a Tenfuse 15x2mm Allograft Angle Graft Bone Pip Sterile - Sna - [id number] Explanted:Qty: 1 on 03/31/2020 at [facility] Left: Foot [employer] C1713 05/29/2020 TFF-2015A / NA / [id number] Procedures Procedure Name Priority Date/Time Associated Diagnosis Comments PORTABLE/HOME SLEEP STUDY Routine 09/08/2024 2:43 PM CDT Snoring FLEXIBLE SIGMOIDOSCOPY 01/01/2024 7:13 AM CDT SCREENING MAMMOGRAM BILATERAL W JOSE Schedule Routine, Read Routine (OP Routine) 01/17/2023 2:51 PM CDT Screening mammogram, encounter for COLONOSCOPY 08/24/2020 11:10 AM CDT from Last 3 Months or Most Recently Relevant to Health Maintenance Results * Portable/Home Sleep Study (09/08/2024 2:43 PM CDT) Impressions Coretta Velez MD - 09/08/2024 2:43 PM CDT Indication for study: Ms. Walsh is a 73-year-old chief complaints of snoring, unrefreshing sleep and extreme daytime sleepiness. The patient's [place] Sleepiness scale score is 22 Vital statistics: Age: 73 year BMI: 30.9 Procedure: Unless otherwise noted, respiratory events were scored in accordance with recommended parameters outlined in the AASM Manual for the Scoring of Sleep and Associated Events, Version 2.6 Hypopneas were scored in accordance with acceptable parameters as outline in Chapter IX, Part 1: HSAT utilizing Respiratory Flow and or Effort Parameters, Category H., Section 1b. This study was performed using a Visual[employer] Link portable monitoring unit, a type 3 portable monitoring device. Variable monitored included nasal/oral pressure transduced airflow( PTAF), single respiratory effort (thoracic belt), snoring (derived from PTAF sensor) and pulse oximetry. Description of Polysomnography findings: Patient had 9 hours and 40 minutes of monitored time. 8 hours and 22 minutes flow evaluation was present. 9 hours and 26 minutes oxygen saturation analysis was present. The apnea-hypopnea index was 0.4. There were 1 apneas and 2 hypopneas recorded. Baseline oxygen saturation was 98%. Lowest oxygen saturation was 91%. Average oxygen saturation was 96%. The oxygen desaturation index was 0.5. Pulse evaluation revealed maximum 99 beats per minute, minimum 62 beats per minute and average of 71 beats per minute Impression: 1. Apneas and hypopneas were present. Present study does not meet the criteria for obstructive sleep apnea syndrome 2. In light of the patient's extreme daytime sleepiness with the ESS of 22, further assessment is recommended. 3. Sleep hygiene should be reviewed to assess factors that may improve sleep quality. 4.Weight management and regular exercise should be initiated or continued 5.Avoid alcohol sedatives and other FABRICATION MANAGER depression that may worsen sleep and disrupt normal sleep architecture Limitations of the study: 1. A sleep EEG was not recorded; therefore, the actual amount of time spent in sleep, stages of sleep and respiratory events associated with arousals cannot be determined by this study. 2. All indexes are computed against monitoring time, not total sleep time. For this reason, the degree of severity may be underestimated 3. The severity of the sleep apnea may vary from night to night depending on body position during sleep, REM sleep and sleep efficiency. These factors should be taken into consideration. Narrative Coretta Velez MD - 09/08/2024 2:43 PM CDT Ocst is ready for review us Rogerio Ash MD SLEEP [facility]ENTER ORDERABLES Final Result * Flexible Sigmoidoscopy (01/01/2024 7:13 AM CDT) Anatomical Region Laterality Modality Other Narrative Procedure Note Kathie Hager MD - 01/01/2024 7:[address] [facility] Patient Name: Chasidy Walsh Procedure Date: 01/01/2024 7:13 AM Date of : 1950 Admit Type: Outpatient Age: 73 Gender: Female Attending MD: Kathie Hager M.D. Room: [facility] 1 Note Status: Finalized Patient Profile: This is a 73 year old female. Patient had recent planes of seepage of stool. Sigmoidoscopy for evaluation. Previous colonoscopy normal except for diverticulosis Procedure: Flexible Sigmoidoscopy Indications: Incontinence of feces Referring MD: Rogerio Ash M.D. Providers: Kathie Hager M.D. Impression: - Diverticulosis in the sigmoid colon. - Erythematous mucosa in the rectum. Biopsied. - Two 3 to 4 mm polyps in the rectum, removed witha cold biopsy forceps. Resected and retrieved. - Internal hemorrhoids. Recommendation: - Await pathology results. - Continue present medications. - Continue anal sphincter strengthening exercisesand fiber supplements daily Medicines: None Complications: No immediate complications. Estimated Blood Loss: Estimated blood loss: none. Procedure: Pre-Anesthesia Assessment: - Prior to the procedure, a History and Physicalwas performed, and patient medications and allergieswere reviewed. The patient's tolerance of previous anesthesia was also reviewed. The risks andbenefits of the procedure and the sedation options and risks were discussed with the patient. All questions were answered, and informed consent was obtained. Prior Anticoagulants: The patient has taken noanticoagulant or antiplatelet agents. ASA Grade Assessment: II -A patient with mild systemic disease. After reviewing the risks and benefits, the patient was deemed in satisfactory condition to undergo the procedure. The benefits, risks, and alternatives to theprocedure and sedation were discussed and informed consentwas obtained. The Endoscope [id number] was introduced through the anus and advanced to the the sigmoid colon. The flexible sigmoidoscopy was accomplished without difficulty. The patienttolerated the procedure well. The quality of the bowel preparation was good. Findings: The perianal and digital rectal examinations were normal. Squeeze pressure was somewhat weak but maintained. Pelvic floor movement was appropriate Multiple medium-mouthed diverticula were found in the sigmoidcolon. A diffuse area of mildly erythematous mucosa was found in the rectum. Biopsies were taken with a cold forceps for histology. Two semi-sessile polyps were found in the rectum. The polyps were 3to 4 mm in size. These polyps were removed with a cold biopsy forceps. Resection and retrieval were complete. Internal hemorrhoids were found during retroflexion. The hemorrhoids were small. Electronically signed by Kathie Hager M.D. Kathie Hager M.D. 01/01/2024 8:33:39 AM Number of Addenda: 0 Note Initiated On: 01/01/2024 7:13 AM Procedure Code(s): --- Professional --- 45782, Sigmoidoscopy, flexible; with biopsy, single or multiple Diagnosis Code(s): --- Professional --- K64.8, Other hemorrhoids K62.89, Other specified diseases of anus and rectum D12.8, Benign neoplasm of rectum R15.9, Full incontinence of feces K57.30, Diverticulosis of large intestine without perforation orabscess without bleeding CPT copyright 2020 [employer]. All rights reserved. The codes documented in this report are preliminary and upon tank stave assembler reviewmay be revised to meet current compliance requirements. Recognized by the [place] for promoting quality in endoscopy Kathie Hager MD ENDOSCOPY PROCEDURES Final Result * Screening Mammogram Bilateral W Jose (01/17/2023 2:51 PM CDT) Anatomical Region Laterality Modality Breast Bilateral Mammography 01/17/2023 3:15 PM CDT Impressions 01/17/2023 3:15 PM CDT There is no mammographic evidence of malignancy. A 1 year screening mammogram is recommended. BI-RADS: 1 - Negative. The patient has been or will be contacted. The patient will be entered into a reminder system with a target due date of 1 year for her next mammogram. Electronically signed by: ELLIOT Arias 01/17/2023 3:15 PM CDT EXAMINATION: SCREENING MAMMOGRAM BILATERAL W JOSE ORDERING HEALTHCARE PROVIDER: SELF SCREENING MAMMOGRAM HISTORY: Routine screening mammography. COMPARISON: 08/24/2014. TECHNIQUE: CC and MLO views of both breasts were obtained with digital technique using digital breast tomosynthesis with C view. Computer aided detection was utilized. FINDINGS: DENSITY: The breasts are heterogeneously dense, which may obscure small masses. BREASTS: There is no new suspicious finding in either breast on mammogram. us Self Screening Mammogram IMG MAMMO PROCEDURES Fi nal Result * COLONOSCOPY (08/24/2020 11:10 AM CDT) Anatomical Region Laterality Modality Other Narrative Procedure Note Mahendra Alex MD - 08/24/2020 11:10 AM CDT [facility] Patient Name: Chasidy Walsh Procedure Date: 08/24/2020 11:10 AM Date of : 1950 Admit Type: Outpatient Age: 69 Gender: Female Attending MD: Mahendra Alex M.D. Room: [facility] END[facility]COPY ROOM 2 Note Status: Finalized Patient Profile: Refer to note in patient chart for documentation of history and physical. Procedure: Colonoscopy Indications: Last colonoscopy: 2010, Iron deficiency anemia Referring MD: Rogerio Ash M.D. Providers: Mahendra Alex M.D. Impression: - Hemorrhoids found on perianal exam. - Diverticulosis in the sigmoid colon. - The examination was otherwise normal. - No specimens collected. Recommendation: - Discharge patient to home. - Resume previous diet. - Continue present medications. - Repeat colonoscopy in 10 years for screening purposes. - Return to primary care physician as previously scheduled. Medicines: Propofol per Anesthesia Complications: No immediate complications. Estimated Blood Loss: Estimated blood loss: none. Procedure: Pre-Anesthesia Assessment: - This assessment was completed [Time ofAssessment] prior to the administration of sedation. The benefits, risks and alternatives of theprocedure and sedation were discussed and informed consentwas obtained. All questions were answered. Please referto the signed informed consent document in the medical record. The scope was passed under direct vision.The Colonoscope [id number] was introducedthrough the anus and advanced to the the cecum, identifiedby appendiceal orifice and ileocecal valve. The bowel preparation used was Miralax via split dose instruction. The bowel preparation used wasbisacodyl tablets via split dose instruction. Bowel prep was administered using a split dose. The colonoscopywas performed without difficulty. The patient tolerated the procedure well. The quality of the bowel preparation was good. Findings: Hemorrhoids were found on perianal exam. Multiple small and large-mouthed diverticula were found in thesigmoid colon. The exam was otherwise without abnormality. Electronically signed by Mahendra Alex M.D. Mahendra Alex M.D. 08/24/2020 11:47:19 AM Number of Addenda: 0 Note Initiated On: 08/24/2020 11:10 AM Procedure Code(s): --- Professional --- 40789, Colonoscopy, flexible; diagnostic, including collection of specimen(s) by brushing or washing, when performed (separateprocedure) Diagnosis Code(s): --- Professional --- K57.30, Diverticulosis of large intestine without perforation orabscess without bleeding D50.9, Iron deficiency anemia, unspecified K64.9, Unspecified hemorrhoids CPT copyright 2019 [employer] [place]. All rights reserved. The codes documented in this report are preliminary and upon tank stave assembler reviewmay be revised to meet current compliance requirements. Recognized by the [place] [employer] for promoting quality in endoscopy Mahendra Alex MD ENDOSCOPY PROCEDURES Final Re sult from Last 3 Months or Most Recently Relevant to Health Maintenance Insurance [facility] Advance Directives For more information, please contact: [phone] * Full Code (Latest Code Status on File) Date Activated Date Inactivated Comments 01/01/2024 7:29 AM 01/01/2024 1:11 PM * Full Code Date Activated Date Inactivated Comments 01/01/2024 7:28 AM 01/01/2024 7:29 AM * Full Code Date Activated Date Inactivated Comments 11/08/2021 6:27 PM 11/09/2021 5:29 PM * Full Code Date Activated Date Inactivated Comments 03/01/2021 11:33 PM 03/06/2021 7:31 PM * Full Code Date Activated Date Inactivated Comments 08/24/2020 10:27 AM 08/24/2020 4:30 PM Care Teams Gutter Hanger Relationship Specialty Start Date End Date Rogerio Ash MD [address] [place] [address] PCP - General 03/28/18 Radha Peck, PT Physical Therapist Physical Therapy 01/23/18 Ashley Glasgow, DCS ENGINEER Press Tender Incendiary Grenade Physical Therapy 01/26/18 Dominic Booker DPM [address] [place] [address] Consulting Physician Orthopedic Surgery 03/31/20 Delfina Monroy PA [address] [place] [address] Physician Ux Interaction Designer Orthopedic Surgery 11/09/21 Nicole Muñiz DPM [address] [place] [address] Consulting Physician Foot and Ankle Surg 03/25/22
--- OUTSIDE RECORDS SUMMARY | 2024-10-18 19:05 | XMS_ITS | Encounter Summary ---
Author Organization [facility] Healthcare Address [address] [place] [address] Care Team Providers Care Housekeeping And Laundry Team Leader Name Role Phone Cisco Radha PT Unavailable Unavailable Ashley Glasgow PTA Unavailable Unavailable Rogerio Ash MD Primary Care Provider + Dominic Booker DPM Unavailable [phone] Delfina Monroy Unavailable [phone] Nicole Muñiz DPM Unavailable [phone] Encounter Details Date Type Department Care Team (Late st Contact Info) Description 06/28/2019 Telephone [facility] [address] [place] [address] Sahra Santos, ANDRA Social History Tobacco Use Types Packs/Day Years Used Date Smoking Tobacco: Never Smokeless Tobacco: Never Alcohol Use Standard Drinks/Week Comments Yes 0 (1 standard drink = 0.6 oz pur e alcohol) rare Comments Unknown Sex and Gender Information Value Date Recorded Sex Assigned at Not on file Legal Sex Female 8:19 AM TRIM MECHANIC Gender Identity Female 11/20/2021 7:13 AM CDT Sexual Orientation Straight 11/11/2018 2: 28 AM CDT documented as of this encounter Plan of Treatment Not on file documented as of this encounter Visit Diagnoses Not on filedocumented in this encounter Additional Health Concerns Infection Onset Date Last Indicated Resolved Time COVID: Suspected 12/22/2019 12/22/2019 12/23/2019 11:30 PM CDT Respiratory Infection (LYNDA), contact + droplet Comment:Automatically added due to negative COVID-19 result. 12/23/2019 12/23/2019 01/06/2020 3:0 7 AM CDT COVID19 Comment:+02/21/21 Pt tested positive as an outpatient. ANDRA Be 02/21/2021 03/01/2021 03/20/20 3:05 AM CDT documented as of this encounter Care Teams Housekeeping And Laundry Team Leader Relationship Specialty Start Date End Date Rogerio Ash MD [address] [facility] [place] [address] PCP - General 03/28/18 Radha Peck, PT Physical Therapist Physical Therapy 01/23/18 Ashley Glasgow COCOA POWDER MIXER OPERATOR Coke Inspector Physical Therapy 01/26/18 Dominic Booker DPM [address] [place] [address] Consulting Physician Orthopedic Surgery 03/31/20 Delfina Monroy PA [address] [place] [address] Physician Pairer Substandard Orthopedic Surgery 11/09/21 Nicole Muñiz DPM [address] [place] [address] Consulting Physician Foot and Ankle Surg 03/25/22 documented as of this encounter
--- OUTSIDE RECORDS SUMMARY | 2024-10-18 19:05 | XMS_ITS | Referral Summary ---
Author Organization [facility] Address [address] [place] [address] Care Team Providers Care Restaurant Mgr Name Role Phone CicsoRadha PT Unavailable Unavailable Ashley Glasgow PTA Unavailable Unavailable Rogerio Ash MD Primary Care Provider + Dominic Booker DPM Unavailable [phone] Delfina Monroy Unavailable [phone] Nicole Muñiz DPM Unavailable [phone] Encounters Date Type Department Care Team Description 09/07/2024 10:00 AM CDT - 09/07/2024 11:59 PM CDT Hospital Encounter [facility] [address] [place] [address] Snoring Discharge Disposition: Discharge to home or self care from Last 3 Months Allergies Active Allergy Reactions Criticality Noted Date [...] (03/20/2022): Added automatically from request for surgery [id number] 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 Overview (03/20/2022): Added automatically from request for surgery [id number] Rotator cuff arthropathy, right 10/18/2021 Overview (10/18/2021): Added automatically from request for surgery [id number] Biceps tendonitis, right 10/18/2021 Overview (10/18/2021): Added automatically from request for surgery [id number] COVID-19 02/22/2021 Iron deficiency anemia 07/21/2020 Overview (07/21/2020): Added automatically from request for surgery [id number] Absolute anemia 03/28/2020 Overview (03/28/2020): Added automatically from request for surgery [id number] Nontoxic single thyroid nodule 06/15/2019 Assessment & Plan (06/15/2019 10:44 AM PRESS OPERATOR CARBON BLOCKS): Fine needle aspiration to right Thyroid Lobe nodule 2 cm - call with results Zpak Good hydration Monitor blood pressure Cough 06/15/2019 Assessment & Plan (06/15/2019 10:45 AM PRESS OPERATOR CARBON BLOCKS): Zpak, call if no improvement Headache 05/17/2019 [...] 03/23/2004 Spinal stenosis in cervical region 03/23/2004 Immunizations Immunization Administration Dates Next Due Influenza, Quadrivalent, Spl it, Preservative Free, Intramuscular 04/27/2015 Influenza, Split 04/22/2011 Influenza, Trivalent, High D ose, Split, Preservative Free, Intramuscular 03/10/2017,03/04/2016 Influenza, Trivalent, Split, Preservative Free, Intradermal 03/14/2014 Pneumococcal Conjugate PCV 13 03/04/2016 Tdap 03/28/2018 Social History Tobacco Use Types Packs/Day Years [...] on file Legal Sex Female 8:19 AM PRESS OPERATOR CARBON BLOCKS Gender Identity Female 11/20/2021 7:13 AM CDT Sexual Orientation Straight 11/11/2018 2: 28 AM CDT Last Filed Vital Signs Vital Sign Reading [...] 01/01/2024 7:24 AM CDT Plan of Treatment Not on file Medical Devices Implanted Type Area Animator Device Identifier Shelf Expiration Date Model / Serial / Lot Cement Bone Smartset Gentamicin 40 Gm High Viscosity - [id number] Implanted:Qty: 1 on 07/01/2017 at [facility] [employer] 10/06/2018 [id number] / / [id number] Cement Bone Smartset Gentamicin 40 Gm High Viscosity - [id number] Implanted:Qty: 1 on 07/01/2017 at [facility] [employer] 11/06/2018 [id number] / / [id number] Baseplate Tibial Attune 5 Knee Cement Revision Fix Bearing Sterile Knee System - [id number] Implanted:Qty: 1 on 07/01/2017 at [facility] [employer] 11/06/2026 [id number] / / [id number] Stem Femoral Attune L50 Mm Od14 Mm Knee Cemented Revision Sterile - [id number] Implanted:Qty: 1 on 07/01/2017 by Dennis Espino MD at [facility] [employer] 11/06/2026 [id number] / / [id number] Insert Tibial Attune Aox 6 H8 Mm Knee Posterior Stabilize Fix Bearing Sterile - [id number] Implanted:Qty: 1 on 07/01/2017 by Dennis Espino MD at [facility] [employer] 04/08/2022 [id number] / / [id number] Dome Patellar Attune Aox H35 Mm Knee Cemented Medialize Sterile - [id number] Implanted:Qty: 1 on 07/01/2017 by Dennis Espino MD at [facility] [employer] 02/06/2022 [id number] / / [id number] Component Femoral Attune 6 Knee Right Cemented Posterior Stabilize Sterile - [id number] Implanted:Qty: 1 on 07/01/2017 by Dennis Espino MD at [facility] [employer] 03/08/2027 [id number] / / [id number] [employer] Inc Tff-2015a Tenfuse 15x2mm Allograft Angle Graft Bone Pip Sterile - Sn/A - [id number] Implanted:Qty: 1 on 03/31/2020 at [facility] Left: Foot [employer] Inc [id number] 06/16/2021 TFF-2015A / N/A / [id number] 5 [employer] Inc Tff-2718 Tenfuse 18x2.7mm Allograft Graft Bone Pip Sterile - [id number] Implanted:Qty: 1 on 03/31/2020 at [facility] Left: Foot [employer] 12/14/2021 TFF-32061 / / [id number] [employer] Inc Tff-2015a Tenfuse 15x2mm Allograft Angle Graft Bone Pip Sterile - Sna - [id number] Implanted:Qty: 1 on 03/31/2020 at [facility] Left: Foot [employer] C1713 06/16/2021 TFF-2015A / NA / [id number] [employer]ech Reverse Torque Define Shoulder Kit Screw 320-20-00 - [id number] - [id number] Implanted:Qty: 1 on 11/08/2021 by Dennis Espino MD at [facility] Right: Shoulder [employer] 10/14/2026 320-20-00 / [id number] / N/A [employer] [id number] Reverse Superior Posterior Augment Shoulder Right - [id number] - [id number] Implanted:Qty: 1 on 11/08/2021 by Dennis Espino MD at [facility] Right: Shoulder [employer] 09/04/2031 320-35-08 / [id number] / N/A [employer] 320-31-36 Component 36mm Glenoid Glenosphere Reverse Shoulder - [id number] - [id number] Implanted:Qty: 1 on 11/08/2021 by Dennis Espino MD at [facility] Right: Shoulder [employer] 03/29/2031 320-31-36 / [id number] / N/A [employer]ech Equinoxe 4.5mm 34mm Kit Compression Lock Cap Reverse Shoulder 320-20-34 - [id number] - [id number] Implanted:Qty: 1 on 11/08/2021 by Dennis Espino MD at [facility] Right: Shoulder [employer] 08/28/2026 320-20-34 / [id number] / N/A [employer] Equinoxe 4.5mm 34mm Kit Compression Lock Cap Reverse Shoulder 320-20-34 - [id number] - [id number] Implanted:Qty: 1 on 11/08/2021 by Dennis Espino MD at [facility] Right: Shoulder [employer] 02/05/2026 320-20-34 / [id number] / N/A [employer] Equinoxe Reverse Shoulder +0mm Tray Humeral Adapter 320-10-00 - [id number] - [id number] Implanted:Qty: 1 on 11/08/2021 by Dennis Espino MD at [facility] Right: Shoulder [employer] 10/16/2031 320-10-00 / [id number] / N/A [employer]ech 300-30-10 Equinoxe Od10 Mm L70 Mm Preserve Short Stem Humeral Sterile - [id number] - [id number] Implanted:Qty: 1 on 11/08/2021 by Dennis Espino MD at [facility] Right: Shoulder [employer] 10/17/2030 300-30-10 / [id number] / N/A [employer]ech Equinoxe 36mm Shoulder 0mm Offset Liner Humeral Sterile 320-36-00 - [id number] - [id number] Implanted:Qty: 1 on 11/08/2021 by Dennis Espino MD at [facility] Right: Shoulder [employer] 06/25/2026 320-36-00 / [id number] / N/A [employer]ech Equinoxe Lock Reverse Shoulder Glenosphere Screw Bone 320-15-05 - Sn/S - [id number] Implanted:Qty: 1 on 11/08/2021 by Dennis Espino MD at [facility] Right: Shoulder [employer] [id number] 09/17/2026 320-15-05 / N/S / [id number] Exactech Equinoxe Lock Reverse Shoulder Glenosphere Screw Bone 320-15-05 - Sn/A - [id number] Implanted:Qty: 1 on 11/08/2021 by Dennis Espino MD at [facility] [employer] [id number] 09/10/2026 320-15-05 / N/A / [id number] Ar[employer]rex Inc Dx Swivelock Sl 3.5mm 8.5mm Fork Eyelet [place] Suture Sterile Ar-8978p - [id number] Implanted:Qty: 1 on 11/18/2022 by Dennis Espino MD at [facility] Left: Wrist [employer] Inc 06/08/2027 AR-8978P / / [id number] Arthrex Inc Arthrex Dx Fibertak Needle [place] Suture Sterile Latex Free Ar-8990st - [id number] Implanted:Qty: 1 on 11/18/2022 by Dennis Espino MD at [facility] Left: Wrist [employer] 06/08/2027 AR-8990ST / / [id number] Explanted Type Area Animator Device Identifier Shelf Expiration Date Model / Serial / Lot VIP Parking Tff-2015a Tenfuse 15x2mm Allograft Angle Graft Bone Pip Sterile - Sna - [id number] Explanted:Qty: 1 on 03/31/2020 at [facility] Left: Foot [employer] C1713 05/29/2020 TFF-2015A / NA / [id number] Procedures Procedure Name Priority Date/Time Associated [...] sleep and extreme daytime sleepiness. The patient's [place] Sleepiness scale score is 22 Vital statistics: [...] 1b. This study was performed using a Secret apnea Link portable monitoring unit, a type 3 [...] or continued 5.Avoid alcohol sedatives and other NIGHT WAREHOUSE SELECTOR depression that may worsen sleep and disrupt [...] Hager MD - 01/01/2024 7:13 AM CDT [facility] Patient Name: Chasidy Walsh Procedure Date: 01/01/2024 7:13 AM Date of : 1950 Admit Type: Outpatient Age: 73 Gender: Female Attending MD: Kathie Hager M.D. Room: [facility] ENDOSCOPY ROOM 1 Note Status: Finalized Patient [...] and informed consentwas obtained. The Endoscope [id number] was introduced through the anus and advanced [...] 7:13 AM Procedure Code(s): --- Professional --- 82370, Sigmoidoscopy, flexible; with biopsy, single or multiple Diagnosis Code(s): --- Professional --- K64.8, Other hemorrhoids K62.89, Other specified diseases of anus and rectum D12.8, Benign neoplasm of rectum R15.9, Full incontinence of feces K57.30, Diverticulosis of large intestine without perforation orabscess without bleeding CPT copyright 2020 [employer]. All rights reserved. The codes documented in this report are preliminary and upon document management analyst reviewmay be revised to meet current compliance requirements. Recognized by the [place] [employer] for promoting quality [...] her next mammogram. Electronically signed by: ELLIOT MANZANARESACIO JOSE SAUER Narrative 01/17/2023 3:15 PM CDT EXAMINATION: SCREENING MAMMOGRAM [...] Alex MD - 08/24/2020 11:10 AM CDT [facility] Patient Name: Chasidy Walsh Procedure Date: 08/24/2020 11:10 AM Date of : 1950 Admit Type: Outpatient Age: 69 Gender: Female Attending MD: Mahendra Alex M.D. Room: [facility] ENDOSCOPY ROOM 2 Note Status: Finalized Patient [...] scope was passed under direct vision.The Colonoscope [id number] was introducedthrough the anus and advanced to [...] 11:10 AM Procedure Code(s): --- Professional --- 65268, Colonoscopy, flexible; diagnostic, including collection of specimen(s) by brushing or washing, when performed (separateprocedure) Diagnosis Code(s): --- Professional --- K57.30, Diverticulosis of large intestine without perforation orabscess without bleeding D50.9, Iron deficiency anemia, unspecified K64.9, Unspecified hemorrhoids CPT copyright 2019 [employer]. All rights reserved. The codes documented in this report are preliminary and upon document management analyst reviewmay be revised to meet current compliance requirements. Recognized by the [place] for promoting quality in endoscopy Mahendra Alex MD ENDOSCOPY PROCEDURES Final Re sult from Last 3 Months or Most Recently Relevant to Health Maintenance Insurance [employer] MEDICARE GOLD [employer] MEDICARE GOLD Advance Directives For more information, please contact: [phone] * Full Code (Latest Code Status on [...] 10:27 AM 08/24/2020 4:30 PM Care Teams Restaurant Mgr Relationship Specialty Start Date End Date Rogerio Ash MD [address] [place] [address] PCP - General 03/28/18 Radha Peck, PT Physical Therapist Physical Therapy 01/23/18 Ashley Glasgow, DRAWER IN JACQU[employer] Burner Machine Physical Therapy 01/26/18 Dominic Booker, DPM [address] [facility] [place] [address] Consulting Physician Orthopedic Surgery 03/31/20 [place] [address] [place] [address] Physician Club Waiter/Waitress Orthopedic Surgery 11/09/21 Nicole Muñiz DPM [address] [place] [address] Consulting Physician Foot and Ankle Surg 03/25/22
--- OUTSIDE RECORDS SUMMARY | 2024-10-18 19:09 | XMS_ITS | CONTINUITY OF CARE DOCUMENT ---
Author Name opal joseph Address Unknown Organization [facility] Office Address [address] [place] [address] Phone [phone] Care Team Providers Care Brim Stitcher Name Role Phone Davion DARLING, Dhiraj Unavailable [phone] FLORENCIO DARLING, PILLO Unavailable [phone] FLORENCIO DARLING, PILLO Unavailable [phone] PROBLEMS Condition Status Date Provider Notes Cardiovascular screening active Sheron lee INSURANCE PROVIDERS Payer name Policy type / Coverage type [place] red republican ID [employer] MEDICARE ADVANTAGE ST 0 003 (HMO POS) Medicare [id number] TREATMENT PLAN Date Name CT, Coronary Calcium Score
[2024-10-18 19:10] VITALS: BP 156/101; PULSE 73; RESP 20; TEMP 37; O2SAT 95
--- NOTE | 2024-10-18 19:24 | ED.HEATRA ---
HPI - Head Injury General Chief complaint: Head Injury Stated complaint: head injury Time Seen by Provider: 10/18/24 19:24 Source: patient, RN notes reviewed and old records reviewed Mode of arrival: ambulatory Limitations: no limitations History of Present Illness HPI Narrative: 74 year old female who presents to [facility] [place] [facility] care with complaints of head injury which occurred yesterday when she opened her metal screen door and hit self in the left forehead region with bruising and minimal swelling noted. Patient reports no LOC but states still has a little headache ans mild dizziness. Patient denies any blurred vision, nausea or vomiting or acute pain. Patient reports no LOC and states that she takes no daily blood thinners. MD Complaint: head injury Onset (ago): day(s) (yesterday) Mechanism of Injury: other (opened screen door and hit self in left forehead) Place: home Loss of Consciousness: no Location of injury: frontal (left) Severity scale (1-10): 3 Quality: aching Other Injuries: none Associated symptoms: other (dizziness, contusion to forehead with bruising) Related Data Home Medications ?Medication ?Instructions ?Recorded ?Confirmed ?Last Taken ?Type hydrocodone 5 mg-acetaminophen 325 5 - 325 tablet PO BID-TID 08/24/20 06/09/23 Unknown History mg tablet ropinirole 1 mg tablet 1 mg PO DAILY 08/24/20 06/09/23 Unknown History atorvastatin 20 mg tablet 20 mg PO DAILY 06/09/23 06/09/23 Unknown History losartan 25 mg tablet 25 mg PO DAILY 06/09/23 06/09/23 Unknown History albuterol sulfate 90 mcg/actuation inhalation 01/02/24 Unknown History aerosol inhaler baclofen 10 mg tablet mg 01/02/24 Unknown History bupropion HCl 150 mg 24 hr tablet, mg PO 01/02/24 Unknown History extended release Allergies Allergy/AdvReac Type Severity Reaction Status Date / Time latex Allergy Unknown Other Verified 06/09/23 16:44 Sulfa (Sulfonamide Allergy Unknown Swelling Verified 06/09/23 16:44 Antibiotics) TELFA BANDAIDS AdvReac Redness of Uncoded 04/14/23 11:42 Skin Review of Systems Review of Systems: CONSTITUTIONAL: Denies fever, chills, or sweats. EYES: Denies visual changes, redness, or discharge. ENT: Denies rhinorrhea, congestion, sore throat, or otalgia. CARDIOVASCULAR: Denies chest pain, palpitations, or edema. RESPIRATORY: Denies cough or dyspnea. GASTROINTESTINAL: Denies abdominal pain, nausea, vomiting, or diarrhea. GENITOURINARY: Denies dysuria or hematuria. SKIN: Denies rash or itching.positive for contusion to the left side of forehead with bruising and minimal swelling MUSCULOSKELETAL: Denies back pain, joint pain, or myalgia. NEUROLOGIC: Reports mild headache, no numbness, or weakness. slight dizziness PSYCHIATRIC: Denies anxiety or depression. All systems reviewed & are unremarkable except as noted in HPI and below PMFSH Past Medical History Medical History Restless leg syndrome Hyperlipidemia Back pain with history of spinal surgery Hypertension Surgical History Surgical History H/O bilateral oophorectomy History of right shoulder replacement History of elbow surgery excision of mass 08/25/2009 History of spinal surgery History of ear surgery Left History of knee surgery Bilateral Family History Family History Father , Related to pneumonia emphysema Smoker in home Mother Cerebrovascular accident Social History Social History (Updated 10/19/24 @ 17:22 by Sarahy Corona NP) Smoking status: Never smoker Tobacco type: cigarettes Second hand tobacco smoke exposure: No Alcohol intake: current Substance use type: opiates Other substance usage details: for chronic pain to back Living arrangements: alone Occupation/Education: occupation Gender identity (if verbalized by the patient): Female Comments At time of signature, agree with nursing past medical, surgical, social and family history. There is no relevant family history pertinent to the presenting complaint Exam Narrative: GENERAL: Well-appearing, well-nourished, and in no acute distress. HEAD: Normocephalic, bruising to the left forehead with minimal swelling from injury EYES: PERRLA and EOMI. no nystagmus ENT: Nares clear, no rhinorrhea or epistaxis. Mucous membranes moist. NECK: Supple. no lymphadenopathy CHEST: Clear to auscultation. No respiratory distress. SAO2 95% on room air HEART: Regular rate and rhythm. No murmur heard. Normal peripheral pulses. ABDOMEN: Soft, nontender, nondistended, normal active bowel sounds. EXTREMITIES: Normal range of motion. No edema. SKIN: Warm, dry, no rash. NEURO: No focal deficits. Alert and oriented x3. cranial nerves intact without deficit, able to move all extremities on own power no droop, able to tandem walk, walk on tip toes and heels. Course Course Emergency Course: Patient is aware of diagnosis, understands and agrees to treatment plan.? Anticipatory guidance given.? Patient agrees to follow-up as directed and is aware of reasons to seek care at the emergency department. Portions of this record may have been created with voice recognition software Level of Care: Express Care Visit Vital Signs Vital signs: Vital Signs Temperature 37.0 C 10/18/24 19:10 Pulse Rate 73 10/18/24 19:10 Respiratory Rate 20 10/18/24 19:10 Blood Pressure 156/101 H 10/18/24 19:10 Pulse Oximetry 95 10/18/24 19:10 Oxygen Delivery Room Air 10/18/24 19:10 Temperature 37.0 C 10/18/24 19:10 Pulse Rate 73 10/18/24 19:10 Respiratory Rate 20 10/18/24 19:10 Blood Pressure 156/101 H 10/18/24 19:10 Pulse Oximetry 95 10/18/24 19:10 Oxygen Delivery Room Air 10/18/24 19:10 Reviewed MDM - Head Injury Differential Diagnosis Differential diagnosis: Likely concussion without loss of consciousness, closed head injury and other (bruising to le ft forehead, contusion left forehead) Medical Records Attestation: I reviewed the patient's medical records. Critical Care Time Critical Care Time Critical Care Time: No Discharge Plan Discharge Clinical Impression: Closed head injury Qualifiers: Encounter type: initial encounter Qualified Code(s): S09.90XA - Unspecified injury of head, initial encounter Forehead contusion Qualifiers: Encounter type: initial encounter Qualified Code(s): S00.83XA - Contusion of other part of head, initial encounter Patient Disposition: Home Condition: Stable Instructions: Head Injury (ED), Facial Contusion (ED) Additional Instructions: Monitor for any changes in level of consciousness any increase headache any nausea vomiting any increased dizziness. Ice to her forehead 20 minutes 3-4 times daily May take Tylenol or ibuprofen for any fever pain Follow up in the ED if any concerns call 911 if any change in condition If your symptoms persist, change or worsen significantly before you can contact your personal physician then please, without delay, go to the emergency department for further evaluation. Follow-up with PCP in 7-10 days or sooner if needed Follow up with PCP soon in regards to your blood pressure which is elevated above threshold for referral. Blood pressure above 120/80 may indicate pre-hypertension. 156/101 Patient Language: Croatian Prescriptions: No Action ropinirole 1 mg tablet 1 mg PO DAILY hydrocodone-acetaminophen 5-325 mg tablet 5 - 325 tablet PO BID-TID baclofen 10 mg tablet albuterol sulfate 90 mcg/actuation HFA aerosol inhaler INHALATION bupropion HCl 150 mg tablet extended release 24 hr PO losartan 25 mg tablet 25 mg PO DAILY atorvastatin 20 mg Tablet 20 mg PO DAILY dicyclomine 20 mg tablet 20 mg PO TID Qty: 20 0RF Rx Instructions: may cause drowsiness Follow-up/Referrals: Mihir,Gabriele Almonte MD [Primary Care Provider] - Time of Disposition: 19:41 Quality [place] Coma Scale Eyes: Open Verbal: Oriented and Alert Motor: Follows Commands Rena Coma Total Score: 15
== END 2024-10-18 19:47 | disposition home or self-care (01) ==
PROVIDERS: Emergency Provider Registered Nurse; PCP Internal Medicine
DX: S09.90XA Unspecified injury of head, initial encounter (principal); W22.8XXA Striking against or struck by other objects, initial encounter; S00.83XA Contusion of other part of head, initial encounter; I10 Essential (primary) hypertension; E78.5 Hyperlipidemia, unspecified; G25.81 Restless legs syndrome; Z96.611 Presence of right artificial shoulder joint
CPT/HCPCS: 99212; G0463